=== PATIENT | female | born 1990 | race Hispanic/Latino ===

== ENCOUNTER → 2017-09-06 | Outpatient (CLI) | payer BC ==
--- NOTE | 2017-09-06 19:16 | Diagnostic Imaging Report ---
PROCEDURE:HEEL/CALCANEOUS BILATERAL INDICATION:Heel pain, heel spur COMPARISON:None. FINDINGS: Left: Normal mineralization. No acute, displaced fracture or dislocation. No lytic or blastic lesion. Joint spaces are preserved. Very small anterior calcaneal enthesophyte. Soft tissues are unremarkable. Right: Normal mineralization. No acute, displaced fracture or dislocation. No lytic or blastic lesion. Joint spaces are preserved. Very small inferior calcaneal enthesophyte. Soft tissues are unremarkable. CONCLUSION: 1. Very small bilateral anterior calcaneal enthesophytes. Hakeem Gonzalez M.D. Dictated by: Hakeem Gonzalez M.D. on 09/06/2017 at 19:16 Electronically approved by: Hakeem Gonzalez M.D. on 09/06/2017 at 19:16
== END ==
LOC: RAD 13:22
PROVIDERS: ATTEND Family Medicine
DX: M77.32 Calcaneal spur, left foot (principal); M77.31 Calcaneal spur, right foot